=== PATIENT | male | born 1935 | race Caucasian/White ===

== ENCOUNTER → 2020-09-05 09:15 | Outpatient (BNVA) | payer MEDICARE, OTHER, SELFPAY | PROVIDERS: Family Provider Family Medicine; PCP Family Medicine; Visit Provider Urology | DX: N40.1 Benign prostatic hyperplasia with lower urinary tract symptoms (principal); N13.8 Other obstructive and reflux uropathy; N39.9 Disorder of urinary system, unspecified | CPT/HCPCS: 81003 ==

== ENCOUNTER 2021-03-09 16:13 | Emergency (ER) | payer MEDICARE, OTHER, SELFPAY ==
[2021-03-09 16:31] VITALS: BP 124/76; PULSE 81; RESP 18; TEMP 36.3; O2SAT 96; BMI 23.0
--- NOTE | 2021-03-09 16:39 | XRR_ITS ---
PROCEDURE INFORMATION: Exam: XR Left Shoulder Exam date and time: 03/09/2021 4:39 PM Age: 85 years old Clinical indication: Injury or trauma; Fall; Blunt trauma (contusions or hematomas) and dislocation; Shoulder; Left TECHNIQUE: Imaging protocol: XR Left shoulder. Views: 2 or more views. COMPARISON: No relevant prior studies available. FINDINGS: Bones/joints: Anterior dislocation of the shoulder. No evidence of osseous Bankart injury or evident Hill-Sachs deformity. No evidence of fracture. Soft tissues: Normal. XR/XR shoulder LT min 2V* [id number] IMPRESSION: Anterior dislocation of the left shoulder.
--- NOTE | 2021-03-09 16:49 | CTR_ITS ---
PROCEDURE INFORMATION: Exam: CT Head Without Contrast Exam date and time: 03/09/2021 4:49 PM Age: 85 years old Clinical indication: Injury or trauma; Blunt trauma (contusions or hematomas); Without loss of consciousness; Patient HX: Fall while walking denies loc; Additional info: Evaluate for brain bleed TECHNIQUE: Imaging protocol: Computed tomography of the head without contrast. Radiation optimization: All CT scans at this facility use at least one of these dose optimization techniques: automated exposure control; mA and/or kV adjustment per patient size (includes targeted exams where dose is matched to clinical indication); or iterative reconstruction. COMPARISON: No relevant prior studies available. RADIATION DOSE METRICS: Total DLP (mGy-cm): 939.5 FINDINGS: Brain: No hemorrhage. Moderate diffuse cerebral atrophy and sequela of chronic small vessel ischemic disease. No mass effect. Cerebral ventricles: No ventriculomegaly. Paranasal sinuses: Visualized sinuses are unremarkable. No fluid levels. Mastoid air cells: Visualized mastoid air cells are well aerated. Bones/joints: Unremarkable. No acute fracture. Soft tissues: Unremarkable. CT/CT head wo con* [id number] IMPRESSION: 1. No acute intracranial abnormality. 2. Moderate diffuse cerebral atrophy and sequela of chronic small vessel ischemic disease. Radiation Dose CTDIVOL = (mGy): DLP = 939.5 (mGy-cm)
--- NOTE | 2021-03-09 17:15 | CTR_ITS ---
PROCEDURE INFORMATION: Exam: CT Cervical Spine Without Contrast Exam date and time: 03/09/2021 5:15 PM Age: 85 years old Clinical indication: Injury or trauma; Blunt trauma; Patient HX: Fall while walking L shoulder dislocation TECHNIQUE: Imaging protocol: Computed tomography images of the cervical spine without contrast. Radiation optimization: All CT scans at this facility use at least one of these dose optimization techniques: automated exposure control; mA and/or kV adjustment per patient size (includes targeted exams where dose is matched to clinical indication); or iterative reconstruction. COMPARISON: CT head wo con* [id number] 03/09/2021 5:50 PM RADIATION DOSE METRICS: Total DLP (mGy-cm): 569.78 FINDINGS: Bones/joints: No acute fracture. Normal alignment. Discs/Spinal canal/Neural foramina: No significant disc protrusion. No severe spinal canal stenosis. Lungs: Biapical scarring. Soft tissues: Unremarkable. CT/CT cervical spin wo con* [id number] IMPRESSION: No acute findings. Radiation Dose CTDIVOL = (mGy): DLP = 569.78 (mGy-cm)
--- NOTE | 2021-03-09 17:16 | W.ED.FALL ---
Documented by User: Emilio Grayson MD 03/11/21 12:13 HPI - Fall General: Chief Complaint: Fall Stated Complaint: fall, left shoulder pain Time Seen by Provider: 03/09/21 17:16 History of Present Illness: HPI Narrative: Mr. Mack is a 85-year-old gentleman with history of hypertension, hyperlipidemia, and prostate issues who presents emergency department due to fall with arm pain. He reports being at his baseline health and walked down his driveway. He is unsure of exactly what happened though denies prodrome including specifically denying lightheadedness, dizziness, chest pain, shortness of breath. He thinks there was probably loose gravel or twigs and he slipped landing on his face. No loss of consciousness. He currently endorses right shoulder pain and has laceration of the face. Intensity of pain is moderate to severe in the shoulder, aching and sharp, worse with movement. He denies prior shoulder injury. Review of Systems General: Reports: 10 or more systems reviewed and unremarkable except in HPI and below PFSH ED PFSH: Family History Brother , PROSTATE CANCER Cancer FATHER /MOTHER AT AGE 88 Social History Smoking and tobacco status: never smoked Alcohol intake: former Marital status: Current occupational status: retired Physical Exam Narrative: EXAM NARRATIVE: GENERAL/CONSTITUTIONAL - well-appearing. No acute distress. Some discomfort though improved from initial presentation with shoulder dislocation. Eyes - PERRL, no conjunctival injection ENMT - Atraumatic external nose and ears. Dried blood noted to bilateral eyebrow regions, no obvious ocular trauma. No septal hematoma. Moist mucous membranes NECK - supple. trachea midline CARDIOVASCULAR - regular rate and rhythm. Peripheral pulses 2+ and equal RESPIRATORY -clear to auscultation bilaterally. No retractions or accessory muscle use. ABDOMEN/GI - Nontender/Nondistended. No tenderness to percussion or evidence of peritonitis MSK -left shoulder s/p reduction, mild generalized tenderness palpation distal CMS intact, muscle strength grossly intact. SKIN - Warm, Dry, abrasion/laceration as noted above. NEURO - alert and appropriately oriented. strength and sensation intact. Moves all extremities equally. PSYCH - Appropriate mood and affect Procedures Laceration Laceration 1: Site: face Side (If applicable): left Size (cm): 2 Description: linear Depth: simple, single layer Pre-repair: wound explored and irrigated extensively Size (cm): other (dermabond) Course ED course: - Patient was seen and evaluated by me at bedside. Prior to my evaluation patient was seen due to shoulder deformity by Dr. Sheppard, see his procedure note for reduction. - Patient placed on cardiac monitors, IV access obtained - Initial evaluation notable for no acute distress, nontoxic appearance. No active bleeding. - Given patient age he is high risk for occult internal injury with head strike especially in the context of distracting injury therefore imaging warranted. -Tdap updated - Imaging notable for successful shoulder reduction without apparent complication. CT head neck negative. -Eyebrow laceration cleaned and explored, repaired with glue. - Upon serial reexamination after treatment the patient was improved - Based on patient history, evaluation, labs, and imaging as interpreted the most likely cause of the patient's condition is mechanical fall with shoulder dislocation which was successfully reduced and facial laceration. - The results of ED evaluation were discussed with the patient including prescriptions and/or symptomatic cares (if applicable) including appropriate and responsible use, followup plan, and return precautions. The patient verbalized understanding and felt safe for discharge. - Patient discharged in satisfactory condition. Vital Signs: Vital signs: Vital Signs Temperature 97.4 F L 03/09/21 16:31 Pulse Rate 110 H 03/09/21 20:34 Respiratory Rate 18 03/09/21 20:34 Blood Pressure 141/96 03/09/21 20:34 Pulse Oximetry 97 03/09/21 20:34 MDM - Fall Medical Records: Attestation: I reviewed the patient's medical records. Lab Data: Attestation: I reviewed the patient's lab results. Discharge Plan Discharge Patient Disposition: Home Clinical Impression: Fall, Shoulder dislocation, Head injury, Laceration Condition: Stable Prescriptions: New oxycodone 5 mg tablet 5 mg PO Q6H PRN (Reason: pain) Qty: 10 RF: 0 No Action metoprolol succinate 25 mg tablet extended release 24 hr 25 mg PO DAILY RF: 0 amlodipine [Norvasc] 10 mg tablet 10 mg PO DAILY RF: 0 pravastatin 20 mg tablet 20 mg PO DAILY RF: 0 fosinopril 10 mg tablet 10 mg PO DAILY RF: 0 aspirin [Adult Low Dose Aspirin] 81 mg tablet,delayed release (DR/EC) 81 mg PO DAILY RF: 0 tamsulosin 0.4 mg capsule 0.4 mg PO DAILY Qty: 90 RF: 3 finasteride 5 mg tablet 5 mg PO DAILY Qty: 90 RF: 3 Discharge Orders: Discharge ED (Routine); Ordered 03/09/21 Ordered By: Emilio Grayson Referrals: Andrew Desir, [Primary Care Provider] - Discharge Diet: Usual diet Discharge Activity: Increase activity as tolerated Patient Instructions: Shoulder Dislocation Exercises (GEN), Shoulder Dislocation (ED), Fall Prevention for Older Adults (ED), Head Injury (ED), Facial Laceration (ED), Opioid Safety Activity Restrictions/Additional Instructions: Thank you for visiting the emergency department. You were seen and evaluated for fall. Your shoulder was dislocated which was reduced at bedside. Please follow-up with your primary care provider and orthopedic surgery. Laceration was repaired with glue. Please watch for signs of infection. Please return to the emergency department for worsening symptoms, uncontrolled pain, or anything else that you are concerned about and feel needs emergency department evaluation. Coding Level of Care Code ED Surgical Sales Representative for Chg Fwd Documented by User: Thomas Sheppard MD 03/12/21 01:47 HPI - Fall General: Chief Complaint: Fall Stated Complaint: fall, left shoulder pain Time Seen by Provider: 03/09/21 17:16 [facility] ED PFSH: Family History Brother , PROSTATE CANCER Cancer FATHER /MOTHER AT AGE 88 Social History Smoking and tobacco status: never smoked Alcohol intake: former Marital status: Current occupational status: retired Procedures Orthopedic Joint Reduction Joint #1: Time Out Performed: Yes Joint Reduction Location: shoulder Analgesia: none Shoulder Technique Used (if applicable): other (Park technique) Post-reduction vascular: intact Post Reduction X-Ray Obtained: Yes Post Reduction X-Ray Results: reduced Splint Applied: Yes Patient Tolerated Procedure: well and no complications Course Vital Signs: Vital signs: Vital Signs Temperature 97.4 F L 03/09/21 16:31 Pulse Rate 110 H 03/09/21 20:34 Respiratory Rate 18 03/09/21 20:34 Blood Pressure 141/96 03/09/21 20:34 Pulse Oximetry 97 03/09/21 20:34 Discharge Plan Discharge Patient Disposition: Home Clinical Impression: Fall, Shoulder dislocation, Head injury, Laceration Condition: Stable Prescriptions: New oxycodone 5 mg tablet 5 mg PO Q6H PRN (Reason: pain) Qty: 10 RF: 0 No Action metoprolol succinate 25 mg tablet extended release 24 hr 25 mg PO DAILY RF: 0 amlodipine [Norvasc] 10 mg tablet 10 mg PO DAILY RF: 0 pravastatin 20 mg tablet 20 mg PO DAILY RF: 0 fosinopril 10 mg tablet 10 mg PO DAILY RF: 0 aspirin [Adult Low Dose Aspirin] 81 mg tablet,delayed release (DR/EC) 81 mg PO DAILY RF: 0 tamsulosin 0.4 mg capsule 0.4 mg PO DAILY Qty: 90 RF: 3 finasteride 5 mg tablet 5 mg PO DAILY Qty: 90 RF: 3 Discharge Orders: Discharge ED (Routine); Ordered 03/09/21 Ordered By: Emilio Grayson Referrals: Andrew Desir DO [Primary Care Provider] - Discharge Diet: Usual diet Discharge Activity: Increase activity as tolerated Patient Instructions: Shoulder Dislocation Exercises (GEN), Shoulder Dislocation (ED), Fall Prevention for Older Adults (ED), Head Injury (ED), Facial Laceration (ED), Opioid Safety Activity Restrictions/Additional Instructions: Thank you for visiting the emergency department. You were seen and evaluated for fall. Your shoulder was dislocated which was reduced at bedside. Please follow-up with your primary care provider and orthopedic surgery. Laceration was repaired with glue. Please watch for signs of infection. Please return to the emergency department for worsening symptoms, uncontrolled pain, or anything else that you are concerned about and feel needs emergency department evaluation. Coding Level of Care Code ED Surgical Sales Representative for Bernice Castillo
--- NOTE | 2021-03-09 17:39 | XRR_ITS ---
PROCEDURE INFORMATION: Exam: XR Left Shoulder Exam date and time: 03/09/2021 5:39 PM Age: 85 years old Clinical indication: Injury or trauma; Fall; Dislocation; Shoulder; Left; Injury details: Post reduction TECHNIQUE: Imaging protocol: XR Left shoulder. Views: 2 or more views. COMPARISON: CR (CHEST, ) 03/09/2021 5:30 PM FINDINGS: Bones/joints: Relocation of the humerus within the glenohumeral joint. Soft tissues: Normal. XR/XR shoulder LT 1V [id number] IMPRESSION: Relocation of the humerus within the glenohumeral joint post reduction.
[2021-03-09 18:05] VITALS: RESP 18
--- NOTE | 2021-03-09 18:07 | ECG_ITS ---
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
--- NOTE | 2021-03-09 18:07 | XRR_ITS ---
PROCEDURE INFORMATION: Exam: XR Chest Exam date and time: 03/09/2021 6:07 PM Age: 85 years old Clinical indication: Wheezing; Additional info: Abnormal lung sounds, fall TECHNIQUE: Imaging protocol: XR of the chest. Views: 1 view. COMPARISON: CT cervical spin wo con* [id number] 03/09/2021 5:53 PM FINDINGS: Lungs: Mildly hyperinflated lungs. Mild biapical scarring. Minor linear atelectasis or scarring at the left lung base. No consolidation. Pleural spaces: Unremarkable. No pleural effusion. No pneumothorax. Heart/Mediastinum: Unremarkable. No cardiomegaly. Bones/joints: Unremarkable. XR/XR chest 1V portable [id number] IMPRESSION: Mildly hyperinflated lungs, with mild biapical scarring, and minor linear atelectasis or scarring at the left lung base. No consolidation.
[2021-03-09] MEDS: tetanus-dipt-pertussis 0.5 mL SDV IM (18:18)
[2021-03-09 20:34] VITALS: BP 141/96; PULSE 110; RESP 18; O2SAT 97
--- NOTE | 2021-03-11 08:56 | DCPLANNER ---
financial manager had message to schedule a follow up appointment for patient with ortho. financial manager called the ortho clinic, spoke with Joann, gave clinic patients information. financial manager was told that patients information would be printed and reviewed. Clinic will call patient with appointment information.
--- NOTE | 2021-03-14 14:52 | DCPLANNER ---
Patient had a follow up appointment scheduled for 03.12.21 with ortho -patient did not attend appointment.
== END 2021-03-09 20:36 | disposition home or self-care (01) ==
PROVIDERS: Emergency Provider Emergency Medicine; PCP Family Medicine
DX: S43.005A Unspecified dislocation of left shoulder joint, initial encounter (principal); S09.90XA Unspecified injury of head, initial encounter; S01.112A Laceration without foreign body of left eyelid and periocular area, initial encounter; W19.XXXA Unspecified fall, initial encounter; Z23 Encounter for immunization
CPT/HCPCS: 12011; 70450; 71045; 72125; 73020; 73030; 90471; 90715; 93005; 99283

== ENCOUNTER 2021-03-25 10:01 | Outpatient (RCR) | payer MEDICARE, OTHER, SELFPAY | END 2021-04-07 23:59 | disposition home or self-care (01) | LOC: SPT 10:01 | PROVIDERS: PCP Family Medicine; Visit Provider Family Medicine | DX: M62.81 Muscle weakness (generalized) (principal); W19.XXXD Unspecified fall, subsequent encounter | CPT/HCPCS: 97110; 97162 ==

== ENCOUNTER 2021-04-08 06:00 | Outpatient (RCR) | payer MEDICARE, OTHER, SELFPAY | END 2021-05-07 23:59 | disposition home or self-care (01) | LOC: SPT 06:00 | PROVIDERS: PCP Family Medicine; Visit Provider Family Medicine | DX: M62.81 Muscle weakness (generalized) (principal); W19.XXXA Unspecified fall, initial encounter | CPT/HCPCS: 97110; 97150 ==

== ENCOUNTER 2021-05-08 06:00 | Outpatient (RCR) | payer MEDICARE, OTHER, SELFPAY | END 2021-06-07 23:59 | disposition home or self-care (01) | LOC: SPT 06:00 | PROVIDERS: PCP Family Medicine; Visit Provider Family Medicine | DX: M62.81 Muscle weakness (generalized) (principal); W19.XXXA Unspecified fall, initial encounter | CPT/HCPCS: 97110 ==

== ENCOUNTER 2021-06-08 06:00 | Outpatient (RCR) | payer MEDICARE, OTHER, SELFPAY | END 2021-07-08 23:59 | disposition home or self-care (01) | LOC: SPT 06:00 | PROVIDERS: PCP Family Medicine; Visit Provider Family Medicine | DX: M62.81 Muscle weakness (generalized) (principal) | CPT/HCPCS: 97110 ==

== ENCOUNTER 2022-09-16 21:05 | Emergency (ER) | payer MEDICARE, OTHER, SELFPAY ==
[2022-09-16 21:13] VITALS: BP 162/97; PULSE 90; RESP 16; O2SAT 95; BMI 19.9
--- NOTE | 2022-09-16 21:13 | W.ED.FALL ---
HPI - Fall General: Chief Complaint: Fall Stated Complaint: fall, rib, chest pain Time Seen by Provider: 09/16/22 21:13 History of Present Illness: Mr Mack is a 87-year-old gentleman presenting to the emergency department for fall with chest injury. He reports being at his baseline health and tripped falling striking his chest on a stump. He does have an abrasion and pain associated with the front of his chest. He is on anticoagulation. Intensity symptoms is moderate and worse with palpation and movement. No other specific changes in health, exacerbating, or alleviating factors identified. Onset (ago): hour(s) Fall from: standing Place fall occurred: home Context: tripped/slipped Location of injury: chest Severity: moderate Quality: sharp and aching Review of Systems General: Reports: 10 or more systems reviewed and unremarkable except in HPI and below PFSH ED PFSH: Medical History BPH with obstruction/lower urinary tract symptoms HTN (hypertension) Hypercholesteremia Incomplete bladder emptying Neuropathy Pes cavus PVD (peripheral vascular disease) Surgical History Hx of CABG Hx of removal of cyst Family History Brother , PROSTATE CANCER Cancer FATHER /MOTHER AT AGE 88 Social History Smoking and tobacco status: never smoked Alcohol intake: former Marital status: Current occupational status: retired Physical Exam Const: COMMON NORMALS: alert GENERAL APPEARANCE: cooperative and well developed HENMT: COMMON NORMALS: normocephalic HEAD & SCALP: normocephalic OTHER: No redd signs or raccoon eyes. No hemotympanum. No otorrhea or rhinorrhea. Jaw alignment normal. Dentition baseline. No obvious bony step-offs. No septal hematoma. No evidence of ocular entrapment. Eye: COMMON NORMALS: conjunctivae normal CONJUNCTIVA: Yes conjunctivae normal SCLERA: sclerae normal Neck/C-Spine: COMMON NORMALS: supple GENERAL: Yes trachea midline Chest: OTHER: Abrasion/contusion, dentist outpatient. Resp: COMMON NORMALS: clear to auscultation bilaterally EFFORT & INSPECTION: Yes able to speak in complete sentences AUSCULTATION: clear to auscultation bilaterally Cardio: COMMON NORMALS: regular rate and regular rhythm RATE: regular rate RHYTHM: regular rhythm GI: COMMON NORMALS: Soft to palpation PALPATION: Yes Soft to palpation, Yes Tenderness to palpation present (GI), No Guarding due to palpation present (GI) and No Rigid due to palpation Extremity: GENERAL: Yes normal exam except as noted and No edema Neuro: COMMON NORMALS: moves all extremities SENSORIUM/ORIENTATION: Yes alert and No Orientation impaired Psych: COMMON NORMALS: mental status grossly normal and Normal thought process present THOUGHT PROCESS: Normal thought process present Course Vital Signs: Vital signs: Vital Signs Pulse Rate 71 09/17/22 00:00 Respiratory Rate 15 09/17/22 00:00 Blood Pressure 140/86 09/16/22 23:08 Pulse Oximetry 97 09/17/22 00:00 Oxygen Delivery Me thod Room Air 09/17/22 00:00 MDM - Fall Medical Decision Making 87-year-old gentleman presenting due to fall with chest pain. Head to toe exam as noted above. EKG demonstrates sinus rhythm with normal axis and intervals, no STEMI. Labs with minimal leukocytosis, normal hemoglobin and platelet count and metabolic panel with mild dehydration. Negative range 2-hour delta troponin. Head and cervical spine negative for acute traumatic injury. Chest abdomen pelvis notable for anterior right third rib fracture. Incidental findings including enlarged prostate discussed. Patient treated during ED course with analgesia, potassium replenishment, IV fluids and is improved. He will be discharged with incentive spirometer and analgesia. Strict return cautions discussed The results of ED evaluation were discussed with the patient including prescriptions and/or symptomatic cares (if applicable) including appropriate and responsible use, followup plan, and return precautions. The patient verbalized understanding and felt safe for discharge. Medical Records I reviewed the patient's medical records. Lab Data I reviewed the patient's lab results. 09/16/22 21:30 09/16/22 21:30 Radiology Impressions Cervical Spine CT 09/16/22 21:26 IMPRESSION: No acute fracture or subluxations. Chest/Abdomen/Pelvis CT 09/16/22 21:26 IMPRESSION: Anterior right 3rd rib fracture. IMPRESSION: 1. No acute findings in the abdomen or pelvis. 2. Markedly enlarged prostate. COMMENTS: Consistent with the [employer]'s Incidental Findings Committee white paper (J Am Jesus Radiol 2018): Any incidental renal lesion less than 1 cm or classified as too small to characterize, or any incidental cystic renal lesion characterized as simple-appearing, is likely benign. No follow-up imaging is recommended for these lesions per consensus recommendations based on imaging criteria. Head CT 09/16/22 21:26 IMPRESSION: No acute intracranial abnormality. Laboratory Results WBC 11.4 10^3/uL (4.0-10.0) H 09/16/22 21:30 RBC 5.11 10^6/uL (4.1-5.3) 09/16/22 21: Hgb 14.9 g/dL (11.7-16.6) 09/16/22 21: Hct 43.9 % (42.0-52.0) 09/16/22 21: MCV 85.9 fl (80-94) 09/16/22 21: MCH 29.2 pg (28.0-34.0) 09/16/22 21: MCHC 33.9 g/dL (30.0-36.0) 09/16/22 21: RDW 12.2 % (12.1-15.1) 09/16/22 21: Plt Count 353 10^3/cmm (130-400) 09/16/22 21: MPV 8.7 fL (7.4-10.4) 09/16/22 21: Neut % (Auto) 67.1 % 09/16/22 21: Lymph % (Auto) 19.8 % 09/16/22 21:30 [place] % (Auto) 11.9 % 09/16/22 21:30 Eos % (Auto) 0.5 % 09/16/22 21: Baso % (Auto) 0.4 % 09/16/22 21:30 Neut # (Auto) 7.64 10^3/uL (1.8-7.7) 09/16/22 21: Lymph # (Auto) 2.3 10^3/uL (0.8-4.8) 09/16/22 21:30 [place] # (Auto) 1.4 10^3/uL (0.2-0.9) H 09/16/22 21:30 Eos # (Auto) 0.1 10^3/uL (0.0-0.8) 09/16/22 21:30 Baso # (Auto) 0.1 10^3/uL (0.0-0.1) 09/16/22 21:30 Nucleated RBC % (auto) 0 % 09/16/22 21: Nucleated RBCs # 0.0 /100WBC 09/16/22 21: PT 14.00 SECONDS (12.1-14.9) 09/16/22 21:30 INR 1.05 (0.8-1.2) 09/16/22 21:30 Sodium 132 mmol/L (136-145) L 09/16/22 21: Potassium 3.2 mmol/L (3.5-5.1) L 09/16/22 21: Chloride 95 mmol/L (98-107) L 09/16/22: Carbon Dioxide 25 mmol/L (22-29) 09/16/22: Anion Gap 15.2 (5-19) 09/16/22 21:30 BUN 13 mg/dL (8-23) 09/16/22 21:30 Creatinine 0.8 mg/dL (0.7-1.2) 09/16/22 21:30 GFR Calculation Not Reportable 09/16/22: Glucose 144 mg/dL (65-115) H 09/16/22 21:30 Calculated Osmolality 277 mOsm/kg (285-295) L 09/16/22: Calcium 9.7 mg/dL (8.5-10.5) 09/16/22 21:30 Total Bilirubin 0.3 mg/dL (0.15-1.2) 09/16/22 21:30 AST 19 U/L (0-40) 09/16/22 21:30 ALT 16 U/L (0-41) 09/16/22 21:30 Alkaline Phosphatase 76 U/L (40-130) 09/16/22 21:30 Troponin T Baseline 10 ng/L (0-15) 09/16/22 21:30 Troponin T 120 Minute 10.33 ng/L (0-15) 09/16/22 22:32 Delta Troponin T 0.33 ABS# (0-10) 09/16/22 22:32 Total Protein 7.9 g/dL (6.6-8.7) 09/16/22 21:30 Albumin 4.0 g/dL (3.5-5.2) 09/16/22 21:30 Globulin 3.9 g/dL (1.3-4.6) 09/16/22 21:30 Discharge Plan Discharge Patient Disposition: Home Clinical Impression: Fall, Right rib fracture, Chest wall contusion, Dehydration, mild, Hypokalemia Condition: Stable Prescriptions: New oxycodone 5 mg tablet 5 mg PO Q4H PRN (Reason: pain) Qty: 20 0RF No Action metoprolol succinate 25 mg tablet extended release 24 hr 25 mg PO DAILY amlodipine [Norvasc] 10 mg tablet 10 mg PO DAILY pravastatin 20 mg tablet 20 mg PO QPM fosinopril 10 mg tablet 10 mg PO DAILY aspirin [Adult Low Dose Aspirin] 81 mg tablet,delayed release (DR/EC) 81 mg PO DAILY hydrochlorothiazide 25 mg tablet 25 mg PO DAILY tamsulosin 0.4 mg capsule 0.4 mg PO DAILY Qty: 90 3RF finasteride 5 mg tablet 5 mg PO DAILY Qty: 90 3RF hydrocodone-acetaminophen 5-325 mg tablet 1 tab PO Q6H PRN (Reason: pain) Qty: 14 0RF amoxicillin-pot clavulanate 875-125 mg tablet 1 tab PO BID Qty: 14 0RF Discharge Orders: Discharge ED (Routine); Ordered 09/16/22 Ordered By: Emilio Grayson Referrals: Andrew Desir, [Primary Care Provider] - Discharge Diet: Usual diet Discharge Activity: Increase activity as tolerated Patient Instructions: How to Use an Incentive Spirometer (ED), Dehydration (ED), Rib Fracture (ED), Hypokalemia (ED), Opioid Safety Activity Restrictions/Additional Instructions: Thank you for visiting the emergency department. You were seen and evaluated for fall with chest pain. CT imaging revealed a mildly displaced right anterior third rib fracture. Labs revealed mild dehydration. I will prescribe oxycodone for pain. You may use [id number] medications such as acetaminophen and ibuprofen for pain however please do not exceed the daily recommended dosage as listed on the packaging and please keep in mind that many namebrand medications contain the same active ingredients. Please avoid these medications if previously instructed to do so by another physician due to other underlying medical condition. Please use your incentive spirometer as discussed. The main risk with rib fractures is development of pneumonia. Please follow-up with a primary care provider. Return to the emergency department for uncontrolled pain, worsening chest pain, cough, shortness of breath, fevers, or anything else that you are concerned about and feel needs emergency department evaluation. Coding Level of Care Code ED Craps Dealer for Bernice Castillo
--- NOTE | 2022-09-16 21:18 | ECG_ITS ---
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 Measurements Intervals [place] Rate: 83 P: 62 CT: 194 QRS: 61 QRSD: 97 T: 50 QT: 375 QTc: 441 Interpretive Statements SINUS RHYTHM WITH SINUS ARRHYTHMIA Compared to ECG 03/09/2021 18:48:33 No significant changes Electronically Signed On 09-17-2022 2:20:17 CDT by Franklin Sims M.D. [id number]
--- NOTE | 2022-09-16 21:26 | CTR_ITS ---
PROCEDURE INFORMATION: Exam: CT Chest With Contrast; Diagnostic Exam date and time: 09/16/2022 9:54 PM Age: 87 years old Clinical indication: Injury or trauma; Fall; Generalized; Blunt trauma (contusions or hematomas); Patient HX: PT tripped and landed chest first against a tree stump. C/O anterior chest wall pain. Abrasion to sternal region. On anticoagulants. ; Additional info: Fall, chest strike, sternal contusion/pain TECHNIQUE: Imaging protocol: Diagnostic computed tomography of the chest with contrast. Radiation optimization: All CT scans at this facility use at least one of these dose optimization techniques: automated exposure control; mA and/or kV adjustment per patient size (includes targeted exams where dose is matched to clinical indication); or iterative reconstruction. Contrast material: OMNI 350; Contrast volume: 75 ml; Contrast route: INTRAVENOUS (IV); REPORTING DATA: Count of CT and Cardiac NM exams in prior 12 months: This patient has received 2 known CTs and 0 known cardiac nuclear medicine studies in the 12 months prior to the current study. COMPARISON: CR XR chest 1V portable [id number] 03/09/2021 6:20 PM RADIATION DOSE METRICS: Total DLP (mGy-cm): 922.14 FINDINGS: Lungs: There is calcified granuloma left lower lobe. There is dependent atelectasis at both lung bases. Pleural spaces: No pneumothorax is identified. Heart: Unremarkable. No cardiomegaly. No pericardial effusion. Coronary arteries: There is moderate atherosclerotic calcification of the coronary arteries. Lymph nodes: There are calcified hilar and mediastinal lymph nodes in keeping with old granulomatous disease. There is a precarinal lymph node measuring 11 x 18 mm. There is otherwise no adenopathy within the chest. Vasculature: There is no thoracic aortic aneurysm or dissection. Bones/joints: There is a minimally displaced fracture of the anterior right 3rd rib. Soft tissues: Unremarkable. PROCEDURE INFORMATION: Exam: CT Abdomen And Pelvis With Contrast Exam date and time: 09/16/2022 9:54 PM Age: 87 years old Clinical indication: Injury or trauma; Fall; Generalized; Blunt trauma (contusions or hematomas); Patient HX: PT tripped and landed chest first against a tree stump. C/O anterior chest wall pain. Abrasion to sternal region. On anticoagulants. ; Additional info: Fall, chest strike, sternal contusion/pain TECHNIQUE: Imaging protocol: Computed tomography of the abdomen and pelvis with contrast. Radiation optimization: All CT scans at this facility use at least one of these dose optimization techniques: automated exposure control; mA and/or kV adjustment per patient size (includes targeted exams where dose is matched to clinical indication); or iterative reconstruction. Contrast material: OMNI 350; Contrast volume: 75 ml; Contrast route: INTRAVENOUS (IV); REPORTING DATA: Count of CT and Cardiac NM exams in prior 12 months: This patient has received 2 known CTs and 0 known cardiac nuclear medicine studies in the 12 months prior to the current study. COMPARISON: CR XR chest 1V portable [id number] 03/09/2021 6:20 PM RADIATION DOSE METRICS: Total DLP (mGy-cm): 922.14 FINDINGS: Liver: There is no focal abnormality within the liver. Gallbladder and bile ducts: The gallbladder is normal. Pancreas: The pancreas is normal. Spleen: The spleen is normal. The spleen demonstrates punctate calcifications, consistent with remote granulomatous organism exposure. Adrenal glands: Normal. No mass. Kidneys and ureters: 2 cm benign-appearing simple cyst posterior cortex mid left kidney. The right kidney is normal. There is no evidence of hydronephrosis. There is no evidence of renal or ureteral calcifications. Stomach and bowel: There is no evidence of colitis/diverticulitis. There is no evidence of intestinal obstruction. There is no evidence of intestinal obstruction. Appendix: A normal appendix is identified. Intraperitoneal space: There is no evidence of free intraperitoneal fluid. There is no evidence of free intraperitoneal fluid. Vasculature: The aorta demonstrates moderate atherosclerotic calcification. There is no evidence of an abdominal aortic aneurysm. Lymph nodes: There is no evidence of lymphadenopathy. There is some calcified periportal lymph nodes in keeping with old granulomatous disease. Urinary bladder: Unremarkable as visualized. Reproductive: The prostate demonstrates marked nonspecific enlargement. The seminal vesicles are normal. The prostate gland demonstrates nonspecific parenchymal calcifications. Prostate volume is 110 cc Bones/joints: The lumbar spine demonstrates mild degenerative changes at multiple levels. Soft tissues: Unremarkable. CT/CT chest abdpel w/*[id number] IMPRESSION: Anterior right 3rd rib fracture. IMPRESSION: 1. No acute findings in the abdomen or pelvis. 2. Markedly enlarged prostate. COMMENTS: Consistent with the [employer]'s Incidental Findings Committee white paper (J Am Jesus Radiol 2018): Any incidental renal lesion less than 1 cm or classified as too small to characterize, or any incidental cystic renal lesion characterized as simple-appearing, is likely benign. No follow-up imaging is recommended for these lesions per consensus recommendations based on imaging criteria.
--- NOTE | 2022-09-16 21:26 | CTR_ITS ---
PROCEDURE INFORMATION: Exam: CT Cervical Spine Without Contrast Exam date and time: 09/16/2022 9:48 PM Age: 87 years old Clinical indication: Injury or trauma; Fall; Blunt trauma; Patient HX: PT tripped and landed chest first against a tree stump. C/O anterior chest wall pain. Abrasion to sternal region. On anticoagulants. ; Additional info: Fall, R neck/shoulder pain TECHNIQUE: Imaging protocol: Computed tomography of the cervical spine without contrast. Radiation optimization: All CT scans at this facility use at least one of these dose optimization techniques: automated exposure control; mA and/or kV adjustment per patient size (includes targeted exams where dose is matched to clinical indication); or iterative reconstruction. REPORTING DATA: Count of CT and Cardiac NM exams in prior 12 months: This patient has received 2 known CTs and 0 known cardiac nuclear medicine studies in the 12 months prior to the current study. COMPARISON: 1. CT cervical spin wo con* [id number] 2021-03-09 17: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 Maintained cervical vertebral body heights. No acute fractures or subluxations. Lungs: Apical pulmonary scarring. Vasculature: Mild carotid atherosclerosis. Soft tissues: Unremarkable. CT/CT cervical spin wo con* [id number] IMPRESSION: No acute fracture or subluxations.
--- NOTE | 2022-09-16 21:26 | CTR_ITS ---
PROCEDURE INFORMATION: Exam: CT Head Without Contrast Exam date and time: 09/16/2022 9:45 PM Age: 87 years old Clinical indication: Injury or trauma; Fall; Blunt trauma (contusions or hematomas); Patient HX: PT tripped and landed chest first against a tree stump. C/O anterior chest wall pain. Abrasion to sternal region. On anticoagulants. TECHNIQUE: Imaging protocol: Computed tomography of the head without contrast. Radiation optimization: All CT scans at this facility use at least one of these dose optimization techniques: automated exposure control; mA and/or kV adjustment per patient size (includes targeted exams where dose is matched to clinical indication); or iterative reconstruction. REPORTING DATA: Count of CT and Cardiac NM exams in prior 12 months: This patient has received 2 known CTs and 0 known cardiac nuclear medicine studies in the 12 months prior to the current study. COMPARISON: 1. CT head wo con* [id number] 2021-03-09 17:[address] cervical spin wo con* [id number] 2021-03-09 17:53 RADIATION DOSE METRICS: Total DLP (mGy-cm): 1129.88 FINDINGS: Brain: Severe chronic cerebral white matter disease. No acute hemorrhage, midline shift, mass, or fluid collections. Cerebral ventricles: Moderate ventricular enlargement. Paranasal sinuses: Mild right maxillary sinus disease. Mastoid air cells: Visualized mastoid air cells are well aerated. Bones/joints: Unremarkable. No acute fracture. Soft tissues: Unremarkable. CT/CT head wo con* [id number] IMPRESSION: No acute intracranial abnormality.
[2022-09-16 21:31] VITALS: RESP 18
[2022-09-16] MEDS: morphine 4 mg/mL SDV 1 mL IVP (21:31)
[2022-09-16 21:32] LABS: Basophils # 0.1 10^3/uL (0.0-0.1); Basophils % 0.4 %; Eosinophils # 0.1 10^3/uL (0.0-0.8); Eosinophils % 0.5 %; Hematocrit 43.9 % (42.0-52.0); Hemoglobin 14.9 g/dL (11.7-16.6); Lymphocytes # 2.3 10^3/uL (0.8-4.8); Lymphocytes % 19.8 %; Mean Corpuscular HGB Conc 33.9 g/dL (30.0-36.0); Mean Corpuscular Hemoglobin 29.2 pg (28.0-34.0); Mean Corpuscular Volume 85.9 fl (80-94); Mean Platelet Volume 8.7 fL (7.4-10.4); Monocytes # 1.4 10^3/uL (0.2-0.9); Monocytes % 11.9 %; Neutrophils # 7.64 10^3/uL (1.8-7.7); Neutrophils % 67.1 %; Nucleated Red Blood Cells % 0 %; Platelet Count 353 10^3/cmm (130-400); Red Blood Count 5.11 10^6/uL (4.1-5.3); Red Cell Distribution Width 12.2 % (12.1-15.1); White Blood Count 11.4 10^3/uL (4.0-10.0)
[2022-09-16] MEDS: iohexol 350 mg/mL 500 mL Btl (per mL) IV (21:59)
[2022-09-16 22:05] LABS: Troponin(5th) Baseline 10 ng/L (0-15)
[2022-09-16 22:09] LABS: Alanine Aminotransferase 16 U/L (0-41); Alkaline Phosphatase 76 U/L (40-130); Anion Gap 15.2 (5-19); Aspartate Amino Transferase 19 U/L (0-40); Blood Urea Nitrogen 13 mg/dL (8-23); Calcium 9.7 mg/dL (8.5-10.5); Carbon Dioxide 25 mmol/L (22-29); Chloride 95 mmol/L (98-107); Globulin 3.9 g/dL (1.3-4.6); Glucose 144 mg/dL (65-115); Osmolality Calculated 277 mOsm/kg (285-295); Potassium 3.2 mmol/L (3.5-5.1); Sodium 132 mmol/L (136-145); Total Bilirubin 0.3 mg/dL (0.15-1.2); Total Protein 7.9 g/dL (6.6-8.7)
[2022-09-16] MEDS: sodium chloride 0.9% 500 ML 999 ML IV (22:21)
[2022-09-16] MEDS: potassium chloride oral liq 20 mEq/15 mL UDC 40 MEQ PO (22:21)
[2022-09-16 22:26] LABS: INR 1.05 (0.8-1.2)
[2022-09-16 23:08] VITALS: BP 140/86; PULSE 71; RESP 22; O2SAT 93
[2022-09-16 23:43] LABS: Troponin 5 2HR 10.33 ng/L (0-15)
[2022-09-16 23:47] LABS: Troponin 5 2HR Delta 0.33 ABS# (0-10)
[2022-09-17] VITALS: PULSE 71; RESP 15; O2SAT 97
== END 2022-09-17 00:09 | disposition home or self-care (01) ==
PROVIDERS: Emergency Provider Emergency Medicine; PCP Family Medicine
DX: S22.31XA Fracture of one rib, right side, initial encounter for closed fracture (principal); W01.198A Fall on same level from slipping, tripping and stumbling with subsequent striking against other object, initial encounter; E86.0 Dehydration; E87.6 Hypokalemia
CPT/HCPCS: 70450; 71260; 72125; 74177; 80053; 84484; 85025; 85610; 93005; 96361; 96374; 99285; J2270; J7040; Q9967

== ENCOUNTER 2022-09-18 10:31 | Emergency (ER) | payer MEDICARE, OTHER, SELFPAY ==
[2022-09-18 10:34] VITALS: BP 170/85; PULSE 97; RESP 15; O2SAT 96
--- NOTE | 2022-09-18 10:52 | CT_ITS ---
WS: [id number] CT CERVICAL TRAUMA TECHNIQUE: Noncontrast CT of the cervical spine with coronal and sagittal reformatted images. CLINICAL INFORMATION: fall, trauma COMPARISON: None. DLP: 2031.[address] scans at [facility] use at least one of these dose optimization techniques: automated e xposure control; mA and/or kV adjustment per patient size (includes targeted exams where dose is matc hed to clinical indication); or iterative reconstruction. FINDINGS: Moderate spondylitic changes. Slight anterolisthesis C4 on C5 and C5 on C6. Disc space narrowing wors e at C5-C6 and C6-C7. Nuchal ligament calcification. Mild pannus formation at the C1-C2 articulation. Normal craniocervical junction. Normal C1-C2 articulation. Dens is normal in appearance. Normal occi pital condyles. No high-grade spinal canal narrowing. Normal C1 ring. No evidence of acute fracture o r dislocation. Normal prevertebral soft tissues. Fibrosis in the lung apices. Pleural plaques. Mastoids air cells ar e well aerated. CT/CT cervical spin wo con* [id number] IMPRESSION: No evidence of acute fracture or dislocation.
--- NOTE | 2022-09-18 10:52 | XR_ITS ---
WS: [id number] EXAMINATION: XR finger LT min 2V [id number] REASON FOR EXAM: fall/injury; 4th COMPARISON: None available. ORDER DATE: 09/18/2022 10:54 AM FINDINGS: There is no sign of any acute osseous or articular abnormality. There are no specific soft tissue abn ormalities. XR/XR finger LT min 2V [id number] IMPRESSION: No acute osseous change
--- NOTE | 2022-09-18 10:52 | CT_ITS ---
WS: [id number] CT HEAD TECHNIQUE: Noncontrast CT of the head obtained from the skullbase to the vertex. CLINICAL INFORMATION: trauma COMPARISON: September 16, 2022 DLP: 1.[address] scans at [facility] use at least one of these dose optimization techniques: automated e xposure control; mA and/or kV adjustment per patient size (includes targeted exams where dose is matc hed to clinical indication); or iterative reconstruction. FINDINGS: No evidence of intracranial hemorrhage or mass effect. Ventricular system and basal cisterns are napier nt. Moderate to advanced small vessel changes with moderate parenchymal volume loss. No extra-axial f luid collections. No evidence of mass or mass effect. Fluid in the RIGHT maxillary sinus. IMPRESSION: 1. No evidence of intracranial hemorrhage or mass effect. 2. Moderate to advanced small vessel changes with moderate parenchymal volume loss. 3. Vascular calcification. 4. Nasal bone fractures described on the face CT. 5. No acute intracranial findings.
--- NOTE | 2022-09-18 10:52 | CT_ITS ---
WS: [id number] CT FACIAL BONES TECHNIQUE: Noncontrast facial bones with coronal and sagittal reformatted images. CLINICAL INFORMATION: fall, trauma COMPARISON: None. DLP: 2031.[address] scans at [facility] use at least one of these dose optimization techniques: automated e xposure control; mA and/or kV adjustment per patient size (includes targeted exams where dose is matc hed to clinical indication); or iterative reconstruction. FINDINGS: Soft tissue edema overlying the nasal bones. Comminuted nasal bone fractures RIGHT greater than LEFT. Chronic appearing nasal septal deviation. Fluid and inspissated secretions in the RIGHT maxillary si nus. Small amount of fluid in the LEFT maxillary sinus. Normal zygoma. Normal pterygoid plates. No ev idence of mandibular fracture dislocation. Normal posterior nasopharynx and parapharyngeal fat. Later al orbits are normal. Normal laminal lamina papyracea. Inferior orbits are normal. No other visualize d facial fractures. CT/CT facial bones wo con* [id number] IMPRESSION: Comminuted nasal bone fractures with RIGHT greater than LEFT maxillary sinusiti s
--- NOTE | 2022-09-18 10:52 | W.ED.FALL ---
HPI - Fall General: Chief Complaint: Fall Stated Complaint: Fall Time Seen by Provider: 09/18/22 10:35 Source: patient, family and EMS Mode of arrival: EMS Limitations: no limitations History of Present Illness: Patient is a very nice 87-year-old male who presents to ED today along with his and presumedly his daughter for evaluation following a fall. Patient states he had a fall less than a week ago and was seen here in our emergency department for evaluation. He was found to have an isolated rib fracture. Patient states he had been doing well since the fall. He states today while walking out of a bank he tripped and fell due to an uneven concrete surface. 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 Patient states he did not get dizzy or lightheaded prior to the fall. No chest pain, shortness of breath, difficulty breathing. He states when he fell he injured mainly his face/nose and is noted to have swelling and a laceration here. Tetanus is up-to-date. He has some mild complaints of pain/swelling to his left ring finger that he sustained on the last fall. He has no other physical complaints at this time. MD complaint: fall Onset (ago): hour(s) Fall from: standing Fall witnessed: yes, by family and yes, by bystander Place fall occurred: street Loss of consciousness: None Prolonged down time: no Symptoms prior to fall: none Context: tripped/slipped Location of injury: face Associated symptoms-after fall: Denies abdominal pain, chest pain, headache(s), hematuria, lightheadedness or neck pain Review of Systems Const: Denies: fever(s), chills, body aches, fatigue or malaise Eyes: Denies: change in vision, blurry vision, photophobia, eye discharge, floaters or seeing flashes ENMT: Reports: epistaxis (bleeding from nose following fall) and sinus pain (nose); Denies: throat pain, odynophagia, ear or mastoid pain or ear discharge Card: Denies: chest pain, palpitations, lightheadedness, syncope or pre-syncope Resp: Denies: dyspnea or pain on inspiration GI: Denies: abdominal pain : Denies: flank pain or hematuria Musc: Reports: extremity pain (L finger pain/swelling from previous recent fall); Denies: neck pain, back pain or joint pain Skin/Breast: Reports: other (laceration to nose) Neuro: Denies: headache(s), numbness in extremities, weakness in extremities, sensory changes or dizziness PFSH ED PFSH: Medical History BPH with obstruction/lower urinary tract symptoms Incomplete bladder emptying Family History Brother , PROSTATE CANCER Cancer FATHER /MOTHER AT AGE 88 Social History Smoking and tobacco status: never smoked Alcohol intake: former Marital status: Current occupational status: retired Physical Exam Const: COMMON NORMALS: no acute distress, average body habitus, patient oriented x3, no limitations, healthy appearing, alert and well nourished GENERAL APPEARANCE: cooperative ORIENTATION/CONSCIOUSNESS: Yes awake, Yes oriented to person, Yes oriented to place and Yes oriented to time HENMT: COMMON NORMALS: normocephalic, atraumatic and TM's normal bilaterally HEAD & SCALP: normal to inspection, normocephalic and atraumatic; no Humphrey's sign, no hematoma and no raccoon eyes FACE & SINUS: sinuses nontender and other (significant swelling to nose/laceration present) NOSE: Normal septum present and Other nasal findings present (dried blood to nares/laceration to bridge of nose; swelling) TYMPANIC MEMBRANE: TM's normal bilaterally MOUTH: Normal oral and palatal mucosa present, lip normal, tongue normal and other (no intraoral injuries noted) TEETH & GINGIVA: Yes dentures (broke portion of top dentures; removed) THROAT: posterior oropharynx normal, tonsils normal and uvula midline Eye: COMMON NORMALS: Equal, round and reactive pupils present and EOMs intact bilaterally GENERAL EYE: appearance normal, both eyes and all related structures and normal light reflex PUPIL: Yes Equal, round and reactive pupils present DIRECT OPHTHALMOSCOPY: Yes normal light reflex Neck/C-Spine: COMMON NORMALS: full ROM GENERAL: Yes normal visual inspection CERVICAL SPINE: Yes cervical ROM normal, No pain with cervical ROM, No Cervical spine tenderness, No step off deformity and No Paracervical muscle tenderness Chest: COMMONS NORMALS: normal inspection of the chest and normal palpation of entire chest wall Resp: COMMON NORMALS: normal respiratory effort and clear to auscultation bilaterally AUSCULTATION: clear to auscultation bilaterally Cardio: COMMON NORMALS: regular rate and regular rhythm RATE: regular rate RHYTHM: regular rhythm GI: COMMON NORMALS: Normal to inspection, nondistended, normoactive bowel sounds present, Soft to palpation, non-tender, No hepatosplenomegaly present and no masses INSPECTION: Yes normal to inspection and No abdominal wall ecchymosis AUSCULTATION: Yes normoactive bowel sounds PALPATION: Yes Soft to palpation and Yes No hepatosplenomegaly present Back/Pelvis: COMMON NORMALS: thoracic and lumbar spine normal to inspection, no thoracic nor lumbar tenderness and thoraco-lumbar ROM normal Extremity: COMMON NORMALS: normal to inspection, capillary refill normal, no joint enlargement, no clubbing, cyanosis or edema, no calf tenderness and no pedal edema GENERAL: Yes normal exam except as noted LEFT UPPER EXTREMITY: Yes hand & digits (ttp/swelling to L 4th finger w/o bony deformity) Left hand and digits: Yes neurovascular exam (normal) Neuro: [place] COMA SCALE: document GCS findings [place] coma scale eye opening: Spontaneous [place] coma scale verbal response: Orientated [place] coma scale motor response: Obey commands [place] coma scale total score: 15 COMMON NORMALS: patient oriented x3, CN's II-XII intact bilaterally, moves all extremities, no focal motor deficits, no sensory deficits noted and gait normal SENSORIUM/ORIENTATION: Yes alert, Yes oriented to person, Yes oriented to place and Yes oriented to time SPEECH: speech normal GAIT: Yes Normal gait present Skin: COMMON NORMALS: no rashes or lesions noted GENERAL SKIN EXAM: no rashes or lesions noted TRAUMA: laceration (nose) Procedures Laceration Laceration 1: Site: face (nose) Size (cm): 2.5 Description: stellate and irregular Depth: simple, single layer Local Anesthetic: lidocaine 1% Amount of anesthesia used (mL): 1.0 Pre-repair: wound explored and irrigated extensively Skin layer closed with: nylon Size (cm): 5-0 Number of sutures: 7 Technique: simple, interrupted Course Vital Signs: Vital signs: Vital Signs Pulse Rate 95 09/18/22 12:32 Respiratory Rate 15 09/18/22 10:34 Blood Pressure 165/98 09/18/22 12:32 Pulse Oximetry 98 09/18/22 12:32 Oxygen Delivery Me thod Room Air 09/18/22 12:32 MDM - Fall Medical Decision Making Patient here following a trip and fall injury. CTs of his head, cervical spine, facial bones obtained. He does have comminuted nasal bone fracture. Patient has overlying laceration so this technically is considered open. Laceration was copiously irrigated and repaired. He will follow-up with ENT and will place on oral antibiotics. Remainder of scans/XRs are normal. Tetanus is up-to-date. Wound care instructions/infection precautions/return ED precautions were discussed with patient as well his family members. Lab Data Radiology Impressions Cervical Spine CT 09/18/22 10:52 IMPRESSION: No evidence of acute fracture or dislocation. Face CT 09/18/22 10:52 IMPRESSION: Comminuted nasal bone fractures with RIGHT greater than LEFT maxillary sinusitis Discharge Plan Discharge Patient Disposition: Home Clinical Impression: Fall on same level from tripping Open fracture of nasal bone Qualifiers: Encounter type: initial encounter Qualified Code(s): S02.2XXB - Fracture of nasal bones, initial encounter for open fracture Condition: Stable Prescriptions: New hydrocodone-acetaminophen 5-325 mg tablet 1 tab PO Q6H PRN (Reason: pain) Qty: 14 0RF amoxicillin-pot clavulanate 875-125 mg tablet 1 tab PO BID Qty: 14 0RF No Action metoprolol succinate 25 mg tablet extended release 24 hr 25 mg PO DAILY amlodipine [Norvasc] 10 mg tablet 10 mg PO DAILY pravastatin 20 mg tablet 20 mg PO QPM fosinopril 10 mg tablet 10 mg PO DAILY aspirin [Adult Low Dose Aspirin] 81 mg tablet,delayed release (DR/EC) 81 mg PO DAILY tamsulosin 0.4 mg capsule 0.4 mg PO DAILY Qty: 90 3RF finasteride 5 mg tablet 5 mg PO DAILY Qty: 90 3RF oxycodone 5 mg tablet 5 mg PO Q4H PRN (Reason: pain) Qty: 20 0RF Discharge Orders: Discharge ED (Routine); Ordered 09/18/22 Ordered By: Aishwarya Christy Referrals: Andrew Desir DO [Primary Care Provider] - Patient Instructions: Nasal Fracture (ED), Laceration (DC), Facial Laceration (ED) Activity Restrictions/Additional Instructions: Keep wound/laceration clean with warm soap and water twice daily. Monitor for signs of infection such as redness, swelling, increased pain, or drainage. Please seek medical re-evaluation if these occur. If you received sutures today these will need to be removed (unless you were told by the provider that they are absorbable). The provider should have discussed with you the length of time until removal-ENT will most likely remove this at your follow up visit. Case management should contact you shortly to set you up with your ENT follow-up appointment. You need to fill your antibiotics and start them immediately. Is been given pain medications that you may take for severe pain. Coding Level of Care Code ED Catering Convention Services Manager for Bernice Castillo
[2022-09-18 12:32] VITALS: BP 165/98; PULSE 95; O2SAT 98
[2022-09-18 13:08] VITALS: BP 165/98; PULSE 97; RESP 18; O2SAT 97
--- NOTE | 2022-09-19 07:48 | DCPLANNER ---
Addendum entered by Venus Kapadia 09/26/22 08:41: Patient had a follow up appointment scheduled with ENT - patient did attend appointment. Addendum entered by Venus Kapadia 09/23/22 11:49: Patient has a follow up appointment scheduled for Thursday, September 24, 2022 at 4:[address] Ellsworth at ENT. Original Note: manager inside had message to schedule a follow up appointment for patient with ENT. manager inside sent patients information to the front office staff at ENT. Patients information will be printed and reviewed. Clinic will call patient with appointment information.
== END 2022-09-18 13:02 | disposition home or self-care (01) ==
PROVIDERS: Emergency Provider Physician Assistant; PCP Family Medicine
DX: S02.2XXB Fracture of nasal bones, initial encounter for open fracture (principal); W18.09XA Striking against other object with subsequent fall, initial encounter; Z79.82 Long term (current) use of aspirin; Y92.510 Bank as the place of occurrence of the external cause
CPT/HCPCS: 12011; 70450; 70486; 72125; 73140; 99284

== ENCOUNTER → 2022-09-24 15:29 | Outpatient (BNVA) | payer MEDICARE, OTHER, SELFPAY | PROVIDERS: PCP Family Medicine; Visit Provider Otolaryngology | DX: S02.2XXB Fracture of nasal bones, initial encounter for open fracture (principal); W01.0XXA Fall on same level from slipping, tripping and stumbling without subsequent striking against object, initial encounter | CPT/HCPCS: 99204 ==

== ENCOUNTER → 2022-09-29 11:20 | Outpatient (BNVA) | payer MEDICARE, OTHER, SELFPAY | PROVIDERS: PCP Family Medicine; Visit Provider Otolaryngology | DX: S02.2XXB Fracture of nasal bones, initial encounter for open fracture (principal); W01.0XXA Fall on same level from slipping, tripping and stumbling without subsequent striking against object, initial encounter | CPT/HCPCS: 99213 ==

== ENCOUNTER 2023-02-16 07:48 | Emergency (ER) | payer MEDICARE, OTHER, SELFPAY ==
[2023-02-16 07:54] VITALS: BP 179/101; PULSE 101; RESP 16; TEMP 36.6; O2SAT 96; BMI 22.4
--- NOTE | 2023-02-16 07:59 | XR_ITS ---
WS: [id number] Exam: XR soft tissue neck [id number] Date/Time of Exam: 02/16/2023 7:59 AM Reason For Exam: Possible retained pill in the throat No radiopaque foreign body identified in the prevertebral soft tissues of the neck. No obvious foreig n body in the airway. Moderate degenerative changes of the cervical spine. Extensive bilateral caroti d artery calcification. IMPRESSION: 1. No radiopaque soft tissue foreign body identified in the region of the neck. The airway appears to be patent. 2. Moderate degenerative changes of the cervical spine. Extensive atherosclerotic plaquing in the car otid arteries.
--- NOTE | 2023-02-16 08:12 | W.ED.GENADLT ---
HPI - General Adult General: Chief complaint: Airway/Esophagus Foreign Body Stated complaint: lodged in throat Time Seen by Provider: 02/16/23 07:49 Source: patient Mode of arrival: ambulatory History of Present Illness: 87-year-old male presents emergency room complaining of the sensation of something caught on the left side of his throat. He took some pills last night after he ate and felt like 1 got stuck in his throat he states he still feels like it is present. He is able to drink and swallow without difficulty is not having any difficulty breathing no wheezing rhonchi or choking sensation just feels a sensation that something is caught. No vomiting. Onset (ago): hour(s) Severity: moderate Relieving factors: none Exacerbating factors: none Associated symptoms: Deny chest pain, cough, diaphoresis, decreased appetite, dyspnea, fevers/chills, malaise, nausea, rash, palpitations, seizures, short of breath, vomiting or weakness Review of Systems Const: Denies: fever(s), chills, malaise or diaphoresis ENMT: Denies: throat pain, odynophagia, hoarseness, swelling of lips/tongue, oral sores, ear or mastoid pain, nasal discharge or nasal congestion Card: Denies: chest pain or palpitations Resp: Denies: dyspnea GI: Denies: abdominal pain, nausea or vomiting : Denies: dysuria, urinary frequency or urinary urgency Skin/Breast: Denies: rash PFSH ED PFSH: Medical History BPH with obstruction/lower urinary tract symptoms CAD (coronary artery disease) S/P CABG HTN (hypertension) Hypercholesteremia Incomplete bladder emptying Neuropathy Pes cavus PVD (peripheral vascular disease) Surgical History Hx of CABG Hx of removal of cyst Family History Brother , PROSTATE CANCER Cancer FATHER /MOTHER AT AGE 88 Social History Smoking and tobacco status: never smoked Alcohol intake: former Marital status: Current occupational status: retired Physical Exam Const: COMMON NORMALS: no acute distress GENERAL APPEARANCE: cooperative and comfortable ORIENTATION/CONSCIOUSNESS: Yes awake, Yes oriented to person, Yes oriented to place and Yes oriented to time HENMT: COMMON NORMALS: normocephalic, atraumatic and hearing grossly normal bilaterally HEAD & SCALP: normocephalic and atraumatic Resp: COMMON NORMALS: normal respiratory effort, No retractions, No use of accessory muscles and clear to auscultation bilaterally AUSCULTATION: clear to auscultation bilaterally Cardio: COMMON NORMALS: regular rate, regular rhythm and No murmurs present (Cardio) RATE: regular rate RHYTHM: regular rhythm Extremity: COMMON NORMALS: normal to inspection, capillary refill normal, no clubbing, cyanosis or edema, no calf tenderness and no pedal edema Neuro: SENSORIUM/ORIENTATION: Yes oriented to person, Yes oriented to place and Yes oriented to time Skin: COMMON NORMALS: no rashes or lesions noted GENERAL SKIN EXAM: no rashes or lesions noted Course Vital Signs: Vital signs: Vital Signs Temperature 97.8 F 02/16/23 07:54 Pulse Rate 101 H 02/16/23 07:54 Respiratory Rate 16 02/16/23 07:54 Blood Pressure 179/101 02/16/23 07:54 Pulse Oximetry 96 02/16/23 07:54 Oxygen Delivery Me thod Room Air 02/16/23 07:54 MDM - General Adult Medical Decision Making There is calcification in the left side of the larynx on soft tissue x-ray of the neck does not appear to be a pill fragment however. Dr. Solano has agreed to see the patient this morning in his office. Patient does not have any emergent condition at this time will be discharged from the ER to Dr. Solano's office. Medical Records I reviewed the patient's medical records. Discharge Plan Discharge Patient Disposition: Home Clinical Impression: Globus sensation Condition: Stable Prescriptions: No Action metoprolol succinate 25 mg tablet extended release 24 hr 25 mg PO DAILY amlodipine [Norvasc] 10 mg tablet 10 mg PO DAILY pravastatin 20 mg tablet 20 mg PO QPM fosinopril 10 mg tablet 10 mg PO DAILY aspirin [Adult Low Dose Aspirin] 81 mg tablet,delayed release (DR/EC) 81 mg PO DAILY tamsulosin 0.4 mg capsule 0.4 mg PO DAILY Qty: 90 3RF finasteride 5 mg tablet 5 mg PO DAILY Qty: 90 3RF hydrochlorothiazide 25 mg tablet 25 mg PO DAILY Qty: 30 0RF Discharge Orders: Discharge ED (Routine); Ordered 02/16/23 Ordered By: Tor Keene Referrals: Jose Eduardo Reich MD [Primary Care Provider] - Discharge Diet: Usual diet Patient Instructions: Opioid Safety, Pain Management Activity Restrictions/Additional Instructions: You are discharged from the emergency room to see Dr. Ulrich in his office. Evaluation emergency room did not show any acute emergent process going on. The x-ray taken emergency room showed a calcification on the left side of the larynx Dr. Ulrich will evaluate this further. Coding Level of Care Code ED [employer] for Bernice Castillo
[2023-02-16 09:04] VITALS: BP 137/88; PULSE 85; RESP 14; O2SAT 95
== END 2023-02-16 09:07 | disposition home or self-care (01) ==
PROVIDERS: Emergency Provider Family Medicine; PCP Family Medicine Adult Medicine
DX: F45.8 Other somatoform disorders (principal); Z79.82 Long term (current) use of aspirin; I25.10 Atherosclerotic heart disease of native coronary artery without angina pectoris; I10 Essential (primary) hypertension; Z95.1 Presence of aortocoronary bypass graft
CPT/HCPCS: 70360; 99283

== ENCOUNTER 2023-02-19 08:36 | Outpatient (CLI) | payer MEDICARE, OTHER, SELFPAY ==
--- NOTE | 2023-02-19 08:48 | CT_ITS ---
WS: [id number] CT NECK WITH CONTRAST HISTORY: DYSPHAGIA TECHNIQUE: Contiguous 2 mm axial images are performed through the neck with intravenous contrast. Sag ittal and coronal reformats are also submitted. All CT scans at [facility] use at least one o f these dose optimization techniques: automated exposure control; mA and/or kV adjustment per patient size (includes targeted exams where dose is matched to clinical indication); or iterative reconstruc tion. CONTRAST: CONTRAST: Omnipaque 350; 100 mL IV. DLP: 156.19 mGy.cm COMPARISON: None available. Nasopharynx, oropharynx, hypopharynx and larynx are unremarkable. No soft tissue masses or abnormal e nhancement. Torus tubarius and fossa of Rosenmuller and parapharyngeal fat are normal. No significant lymphadenopathy is identified. Thyroid gland and salivary glands are normally enhancing with no masses. No cervical spine fracture. Visualized portions of the skull base demonstrate no abnormalities. Orbits and globes are within norm al limits. No soft tissue masses. Visualized paranasal sinuses and mastoid air cells are normal. Lung apices are clear. Scattered calcification in the thoracic aortic arch and also in the cervical c arotid arteries. No high-grade cervical stenosis. IMPRESSION: 1. No neck mass or laryngeal obstruction. 2. No cervical adenopathy.
--- NOTE | 2023-02-19 08:48 | FL_ITS ---
WS: [id number] Exam: [place] barium swallow [id number] Date/Time of Exam: 02/19/2023 8:57 AM Reason For Exam: DYSPHAGIA Fluoroscopy time: 2min [id number] minutes # of spot films: Oropharyngeal phase of swallowing demonstrated mild dysfunction. 1 episode of penetration of thick li quid barium into the laryngeal inlet was observed. The esophagus is otherwise patent. No intrinsic ma ss or stricture. Mild spasm of the mid and lower esophagus. No hiatal hernia or gastroesophageal refl ux was noted. IMPRESSION: 1. Mild dysfunction noted during the oropharyngeal process of swallowing. 2. Single episode of mild penetration into the laryngeal inlet. 3. No intrinsic esophageal mass or stricture. Mild spasm. Recommendations: Modified barium swallow exam might be helpful for further work-up if felt to be clin ically warranted.
[2023-02-19] MEDS: iohexol 350 mg/mL 500 mL Btl (per mL) IV (09:28)
== END 2023-02-19 08:37 | disposition home or self-care (01) ==
LOC: RAD 08:38
PROVIDERS: PCP Family Medicine Adult Medicine; Visit Provider Specialist
DX: R13.10 Dysphagia, unspecified (principal)
CPT/HCPCS: 70491; 74220; Q9967

== ENCOUNTER → 2023-02-23 11:21 | Outpatient (BNVA) | payer MEDICARE, OTHER, SELFPAY | PROVIDERS: PCP Family Medicine Adult Medicine; Visit Provider Otolaryngology | DX: J35.8 Other chronic diseases of tonsils and adenoids (principal) | CPT/HCPCS: 99213; 99214 ==

== ENCOUNTER → 2023-07-16 10:52 | Outpatient (BNVA) | payer MEDICARE, OTHER, SELFPAY | PROVIDERS: PCP Family Medicine Adult Medicine; Visit Provider Family Medicine Adult Medicine | DX: R73.9 Hyperglycemia, unspecified (principal); I10 Essential (primary) hypertension; I73.9 Peripheral vascular disease, unspecified; E78.00 Pure hypercholesterolemia, unspecified; N40.1 Benign prostatic hyperplasia with lower urinary tract symptoms; R35.1 Nocturia; N13.8 Other obstructive and reflux uropathy; R33.9 Retention of urine, unspecified; Z12.5 Encounter for screening for malignant neoplasm of prostate | CPT/HCPCS: 80053; 83036; 84443; G0103 ==

== ENCOUNTER → 2023-12-22 08:48 | Outpatient (BNVA) | payer MEDICARE, OTHER, SELFPAY | PROVIDERS: PCP Family Medicine Adult Medicine; Visit Provider Family Medicine Adult Medicine | DX: I1A.0 Resistant hypertension (principal); I25.10 Atherosclerotic heart disease of native coronary artery without angina pectoris; R73.9 Hyperglycemia, unspecified; R73.03 Prediabetes; E78.00 Pure hypercholesterolemia, unspecified | CPT/HCPCS: 80053; 80061; 83036; 84443; 85025 ==

== ENCOUNTER → 2024-11-08 08:00 | Outpatient (BNVA) | payer MEDICARE, OTHER, SELFPAY | PROVIDERS: PCP Family Medicine; Visit Provider Internal Medicine Cardiovascular Disease | DX: E78.00 Pure hypercholesterolemia, unspecified (principal); E78.5 Hyperlipidemia, unspecified; I25.10 Atherosclerotic heart disease of native coronary artery without angina pectoris; I1A.0 Resistant hypertension | CPT/HCPCS: 80061 ==

== ENCOUNTER → 2024-12-06 08:25 | Outpatient (BNVA) | payer MEDICARE, OTHER, SELFPAY | PROVIDERS: PCP Family Medicine; Visit Provider Family Medicine | DX: I1A.0 Resistant hypertension (principal); I25.10 Atherosclerotic heart disease of native coronary artery without angina pectoris; I73.9 Peripheral vascular disease, unspecified; E78.00 Pure hypercholesterolemia, unspecified; R73.03 Prediabetes | CPT/HCPCS: 80053; 83036; 84443; 85025 ==

== ENCOUNTER → 2025-01-22 11:19 | Outpatient (BNVA) | payer MEDICARE, OTHER, SELFPAY | PROVIDERS: PCP Family Medicine; Visit Provider Emergency Medicine | DX: R05.9 Cough, unspecified (principal) | CPT/HCPCS: 87426 ==